=== PATIENT | male | born 1995 | race Caucasian/White ===

== ENCOUNTER 2018-06-28 09:01 | Inpatient (IN) | payer BC, OTHER ==
[~2018-06-28] VITALS: Ht 190.5 cm; Wt 77.1 kg
[2018-06-28 10:30] VITALS: BP 141/79
[2018-06-28 12:00] VITALS: BP 139/85
[2018-06-28] MEDS: THIAMINE HCL 100 MG TABLET PO SCH (12:30)
[2018-06-28] MEDS ORDERED: LOPERAMIDE HCL 2 MG CAPSULE PO PRN ×2 (12:30)
[2018-06-28] MEDS ORDERED: CLONIDINE HCL 0.1 MG TABLET PO PRN (12:30)
[2018-06-28] MEDS ORDERED: ONDANSETRON 4 MG/2 ML VIAL IM PRN (12:30)
[2018-06-28] MEDS ORDERED: DIAZEPAM 5 MG TABLET PO PRN (12:30)
[2018-06-28] MEDS ORDERED: 3 DAY TAPER OF VALIUM-SERENITY PROTOCOL PO PRN (12:30)
[2018-06-28] MEDS ORDERED: METHOCARBAMOL 750 MG TABLET PO PRN (12:30)
[2018-06-28] MEDS ORDERED: THIAMINE HCL 200 MG/2 ML VIAL IM ONE (12:30)
[2018-06-28] MEDS ORDERED: IBUPROFEN 600 MG TABLET PO PRN (12:30)
[2018-06-28] MEDS ORDERED: DIAZEPAM 10 MG TABLET PO PRN ×2 (12:30)
[2018-06-28] MEDS ORDERED: HYDROXYZINE PAMOATE 25 MG CAPSULE PO PRN (12:30)
[2018-06-28] MEDS ORDERED: LORAZEPAM 2 MG/1 ML VIAL IM PRN ×2 (12:30→12:45)
[2018-06-28] MEDS ORDERED: ONDANSETRON ODT 4 MG TAB.RAPDIS SL PRN (12:30)
[2018-06-28] MEDS ORDERED: MAGNESIUM HYDROXIDE 30 ML LIQUID UDC PO PRN (12:30)
[2018-06-28] MEDS ORDERED: LORAZEPAM 1 MG TABLET PO PRN ×3 (12:45)
[2018-06-28] MEDS: DIAZEPAM 10 MG TABLET PO SCH ×2 (13:46→21:42)
[2018-06-28 15:36] LABS: *AMPHETAMINE, URINE POSITIVE (NEGATIVE); *BARBITURATE, URINE NEGATIVE (NEGATIVE); *CANNABINOID, URINE POSITIVE (NEGATIVE); *COCCAINE, URINE NEGATIVE (NEGATIVE); *OPIATE, URINE NEGATIVE (NEGATIVE); *PHENCYCLIDINE SCREEN,URINE NEGATIVE (NEGATIVE)
[2018-06-28 15:52] LABS: BASOPHILS % (AUTO) 0.3 % (0.0-2.0); EOSINOPHILS # (AUTO) 0.1 K/uL (0.0-0.7); HEMATOCRIT 41.8 % (36.7-47.1); LYMPHOCYTES # (AUTO) 2.4 K/uL (20.0-40.0); LYMPHOCYTES % (AUTO) 36.1 % (20.5-51.5); MEAN CORPUSCULAR HEMOGLOBIN 33.7 uug (23.8-33.4); MEAN CORPUSCULAR HGB CONC 36 g/dL (32.5-36.3); MEAN CORPUSCULAR VOLUME 93.5 fL (73.0-96.2); MONOCYTES # (AUTO) 0.5 K/uL (2.0-10.0); MONOCYTES % (AUTO) 6.8 % (0.0-11.0); NEUTROPHILS # (AUTO) 3.7 K/uL (1.8-8.9); NEUTROPHILS % (AUTO) 54.8 % (38.5-71.5); PLATELET COUNT (AUTO) 135 K/uL (152-348); RED BLOOD CELL COUNT(AUTO) 4.47 MIL/uL (4.06-5.63); WHITE BLOOD COUNT (AUTO) 6.7 K/uL (3.6-10.2)
[2018-06-28 16:00] VITALS: BP 137/82
[2018-06-28 16:01] LABS: HEMOGLOBIN 14.8 g/dL (12.5-16.3)
[2018-06-28 16:13] LABS: ETHANOL < 3 MG/DL (0-0)
[2018-06-28 16:16] LABS: THYROID STIMULATING HORMONE 0.867 mIU/mL (0.358-3.740)
[2018-06-28 16:17] LABS: ALANINE AMINOTRANSFERASE 21 U/L (16-63); ALKALINE PHOSPHATASE 52 U/L (50-136); ASPARTATE AMINOTRANSFERASE 16 U/L (15-37); BILIRUBIN,TOTAL 0.4 mg/dL (0.2-1.0); CARBON DIOXIDE 28 mmol/L (21-32); CHLORIDE 107 mmol/L (98-107); GLUCOSE 93 mg/dL (74-106); MAGNESIUM 2.3 mg/dL (1.8-2.4); POTASSIUM 3.8 mmol/L (3.5-5.1); UREA NITROGEN, BLOOD 14 mg/dL (7-18)
[2018-06-28 20:00] VITALS: BP 113/60
[2018-06-29] VITALS: BP 110/62
[2018-06-29 04:00] VITALS: BP 111/66
[2018-06-29 04:09] LABS: HEPATITIS B SURFACE AG Negative (Negative)
[2018-06-29 08:16] VITALS: BP 155/73
[2018-06-29] MEDS: FOLIC ACID 1 MG TABLET PO SCH (08:39)
[2018-06-29] MEDS: DIAZEPAM 5 MG TABLET PO SCH ×3 (08:39→21:21)
[2018-06-29] MEDS: THIAMINE HCL 100 MG TABLET PO SCH (08:39)
[2018-06-29] MEDS: MULTIVITAMINS,THERAPEUTIC TABLET PO SCH (08:39)
[2018-06-29] MEDS ORDERED: TUBERCULIN,PURIF.PROT.DERIV. 5 TU/0.1 ML TEST ID ONE (09:00)
[2018-06-29 13:14] VITALS: BP 131/63
[2018-06-29 16:58] VITALS: BP 135/75
[2018-06-29 20:00] VITALS: BP 115/61
[2018-06-29] MEDS: diphenhydrAMINE 50 MG CAPSULE PO PRN ×2 (21:20→21:21)
[2018-06-30] VITALS: BP 98/59
[2018-06-30 04:00] VITALS: BP 117/78
[2018-06-30 08:20] VITALS: BP 99/62
[2018-06-30] MEDS: DIAZEPAM 5 MG TABLET PO SCH ×2 (08:44→20:34)
[2018-06-30] MEDS: FOLIC ACID 1 MG TABLET PO SCH (08:44)
[2018-06-30] MEDS: MULTIVITAMINS,THERAPEUTIC TABLET PO SCH (08:44)
[2018-06-30] MEDS: THIAMINE HCL 100 MG TABLET PO SCH (08:44)
[2018-06-30 12:27] VITALS: BP 113/70
[2018-06-30 17:01] VITALS: BP 130/62
[2018-06-30 20:00] VITALS: BP 134/62
[2018-06-30] MEDS: diphenhydrAMINE 50 MG CAPSULE PO PRN (20:34)
[2018-07-01 08:37] VITALS: BP 114/67
[2018-07-01] MEDS: MULTIVITAMINS,THERAPEUTIC TABLET PO SCH (08:45)
[2018-07-01] MEDS: THIAMINE HCL 100 MG TABLET PO SCH (08:46)
[2018-07-01] MEDS: FOLIC ACID 1 MG TABLET PO SCH (08:46)
[2018-07-01 13:36] VITALS: BP 144/80
[2018-07-01 16:54] VITALS: BP 154/92
[2018-07-01 20:00] VITALS: BP 151/88
[2018-07-01] MEDS: diphenhydrAMINE 50 MG CAPSULE PO PRN (20:31)
[2018-07-02 08:00] VITALS: BP 118/66
[2018-07-02] MEDS: THIAMINE HCL 100 MG TABLET PO SCH (08:22)
[2018-07-02] MEDS: MULTIVITAMINS,THERAPEUTIC TABLET PO SCH (08:22)
[2018-07-02] MEDS: FOLIC ACID 1 MG TABLET PO SCH (08:22)
== END 2018-07-02 09:31 | disposition other institution (70) | DRG 895 ==
LOC: SRC 09:01
PROVIDERS: ADMIT Family Medicine Addiction Medicine; ATTEND Family Medicine Addiction Medicine
PROC: HZ2ZZZZ Detoxification Services for Substance Abuse Treatment (ICD-10-PCS; principal; 2018-06-28)
PROC: HZ31ZZZ Individual Counseling for Substance Abuse Treatment, Behavioral (ICD-10-PCS; 2018-06-29)
DX: F11.23 Opioid dependence with withdrawal (principal); F13.230 Sedative, hypnotic or anxiolytic dependence with withdrawal, uncomplicated; F32.9 Major depressive disorder, single episode, unspecified; F41.1 Generalized anxiety disorder; F17.210 Nicotine dependence, cigarettes, uncomplicated
CPT/HCPCS: 36415; 80307; 80324; 80346; 80349; 83735; 84443; 85025; 86580; 86592; 86705; 86803; 87340; 87806; A4663; G0480; Q0163